=== PATIENT | female | born 1950 | race Caucasian/White ===

== ENCOUNTER 2019-06-16 08:07 | Emergency (ER) | payer MEDICARE, SELFPAY ==
[2019-06-16 08:28] VITALS: BP 131/93; PULSE 92; RESP 16; TEMP 36.9; O2SAT 94
--- NOTE | 2019-06-16 08:40 | ED.BACK ---
HPI - Back Pain/Injury General Chief Complaint: Back Pain/Injury Stated Complaint: Back pain Time Seen by Provider: 06/16/19 08:40 Source: patient and RN notes reviewed History of Present Illness HPI Narrative: Patient is a 69-year-old female that presents the urgent care with complaints of upper back pain. Patient states that 6 days ago she mopped her floors for several hours and then woke up with extreme upper back pain. Patient states that it comes and goes but it is very painful to bend over. Patient denies any radiation of the pain. Denies any chest pain. Patient states that she has been taking Tylenol with little relief. Denies of any known trauma, injury, fall. No other acute complaints. No acute distress noted. Patient had a plan of care. Related Data Allergies Allergy/AdvReac Type Severity Reaction Status Date / Time No Known Allergies Allergy Verified 06/16/19 08:40 Review of Systems Review of Systems: Narrative: CONSTITUTIONAL: Denies fever, chills, or sweats. EYES: Denies visual changes, redness, or discharge. ENT: Denies rhinorrhea, congestion, sore throat, or otalgia. CARDIOVASCULAR: Denies chest pain, palpitations, or edema. RESPIRATORY: Denies cough or dyspnea. GASTROINTESTINAL: Denies abdominal pain, nausea, vomiting, or diarrhea. GENITOURINARY: Denies dysuria or hematuria. SKIN: Denies rash or itching. MUSCULOSKELETAL: Reports of upper back pain NEUROLOGIC: Denies headache, numbness, or weakness. PMFSH Comments At the time of my signature, I reviewed and agree with the nursing past medical, surgical, social, and family history. There is no relevant family history pertinent to the patient complaint. Exam Narrative: Exam Narrative: GENERAL: This is a well-nourished, well-developed patient, in no apparent distress. HEAD: normocephalic, atraumatic. EYES: PERRL. Sclera clear/white. Vision is grossly intact. EARS: External ears normal NOSE: External nose normal with no obvious nasal discharge THROAT: Mucous membranes moist NECK: Neck supple CARDIOVASCULAR: Regular rate and rhythm without murmurs, gallops, or rubs. SKIN: warm, intact with no suspicious lesions or rash, good texture and turgor. NEURO: awake, alert, and oriented to person, place and time. There were no obvious focal neurologic abnormalities. EXTREMITIES: No clubbing, cyanosis, or edema. BACK: Mild cervical spine tenderness without deformity or crepitance. Course Vital Signs Vital signs: Vital Signs Temperature 98.5 F 06/16/19 08:28 Pulse Rate 92 06/16/19 08:28 Respiratory Rate 16 06/16/19 08:28 Blood Pressure 131/93 H 06/16/19 08:28 Pulse Oximetry 94 06/16/19 08:28 Temperature 98.5 F 06/16/19 08:28 Pulse Rate 92 06/16/19 08:28 Respiratory Rate 16 06/16/19 08:28 Blood Pressure 131/93 H 06/16/19 08:28 Pulse Oximetry 94 06/16/19 08:28 Reviewed-patient is informed that they may have pre-hypertension or hypertension based on a blood pressure reading in the department. I recommend the patient call the primary care provider listed on their discharge instructions or a physician of their choice this week to arrange follow-up for further evaluation of possible pre-hypertension or hypertension. MDM - Back Pain/Injury MDM Narrative Medical decision making narrative: Advised the patient to continue using Tylenol as needed for pain. May use ice or heat as needed for comfort. If you develop any increase in back pain associated with chest pain or radiation of the pain?go to the emergency room. Follow-up with PCP within 1 week for reevaluation. Spoke to the patient regarding pain management. Patient states she does not like the way it muscle relaxers make her feel and does not wish to have one prescribed at this time. Patient states that she will continue to take her Tylenol. Patient agrees that x-rays are not necessary at this time due to no obvious trauma, injury, fall. Patient states that she will go to
== END 2019-06-16 08:52 | disposition home or self-care (01) ==
PROVIDERS: Emergency Provider Nurse Practitioner Family
DX: M54.9 Dorsalgia, unspecified (principal)
CPT/HCPCS: 99201; G0463